=== PATIENT | male | born 1990 | race Caucasian/White ===

== ENCOUNTER 2020-10-28 23:02 | Emergency (ER) | payer BC ==
[2020-10-28 23:12] VITALS: BP 147/85; PULSE 80; TEMP 97.7; BMI 24.3
[2020-10-28] MEDS ORDERED: ALPRAZolam 1 MG TABLET PO PRN (23:36)
[2020-10-28] MEDS ORDERED: ALPRAZolam 0.25 MG TABLET ONE (23:38)
== END 2020-10-28 23:55 | disposition home or self-care (01) ==
LOC: FER 23:02
DX: F41.9 Anxiety disorder, unspecified (principal)
CPT/HCPCS: 93005; 99284-25